=== PATIENT | female | born 1985 | race Caucasian/White ===

== ENCOUNTER 2020-04-29 07:56 | Day surgery (SDC) | payer MEDICAID, OTHER ==
[2020-04-29] MEDS ORDERED: Sodium Chloride 0.9% 1,000 ML IV STA (08:29)
[2020-04-29] MEDS ORDERED: Sodium Chloride 0.9% 10 ML Syringe FLUSH PRN (08:29)
[2020-04-29] MEDS ORDERED: Ondansetron 4 MG/2 ML SDV IVPUSH ONE (08:30)
[2020-04-29] MEDS ORDERED: fentaNYL 100 MCG/2 ML SDV IVPUSH ONE ×2 (08:30→10:18)
--- NOTE | 2020-04-29 08:33 | EDM.PDOC ---
ED HPI GENERAL MEDICAL PROBLEM - General Chief Complaint: Abdominal Pain Stated Complaint: UPPER/MIDDLE ABD PAIN Time Seen by Provider: 04/29/20 08:25 Source of Information: Reports: Patient, RN Notes Reviewed History Limitations: Reports: No Limitations - History of Present Illness INITIAL COMMENTS - FREE TEXT/NARRATIVE: 34-year-old female presents emergency department a complaint of abdominal pain, she states the pain started last night it is intense initially was in the right lower quadrant but now migrated up to epigastric region she had a bowel movement yesterday she has passed gas no history of abdominal surgeries no fevers no shortness of breath or chest pain Right Lower Abdomen Pain Score (Numeric/FACES): 9 - Related Data Allergies Allergy/AdvReac Type Severity Reaction Status Date / Time Penicillins Allergy Itching Verified 04/29/20 08:20 Home Meds: Home Meds NK [No Known Home Meds] 04/29/20 [History] Past Medical History MANAGER APPOINTMENT History: Reports: Social & Family History - Tobacco Use Smoking Status *Q: Light Tobacco Smoker Years of Tobacco use: 2 Packs/Tins Daily: 0.2 - Caffeine Use Caffeine Use: Reports: Coffee - Recreational Drug Use Recreational Drug Use: No ED ROS GENERAL - Review of Systems Review Of Systems: See Below Constitutional: Reports: No Symptoms HEENT: Reports: No Symptoms Respiratory: Reports: No Symptoms Cardiovascular: Reports: No Symptoms GI/Abdominal: Reports: Abdominal Pain, Flatus, Nausea, Vomiting : Reports: No Symptoms ED EXAM, GI/ABD - Physical Exam Exam: See Below Exam Limited By: No Limitations General Appearance: Alert, Mild Distress Respiratory/Chest: No Respiratory Distress GI/Abdominal Exam: Soft, No Distention, No Abnormal Bruit, Tender (Right lower quadrant), Abnormal Bowel Sounds (Decreased) Back Exam: No: CVA Tenderness (R), CVA Tenderness (L) Course - Vital Signs Last Recorded V/S: Last Vital Signs Temp 97.8 F 04/29/20 08:18 Pulse 63 04/29/20 08:46 Resp 16 04/29/20 08:46 BP 118/73 04/29/20 08:46 Pulse Ox 99 04/29/20 08:46 - Orders/Labs/Meds Orders: Active Orders 24 hr Category Date Time Status Peripheral IV Care [RC] . DIRECTED Care 09/17/20 08:29 Active Abdomen Pelvis w Cont [CT] Urgent Exams 04/29/20 08:29 Taken CORONAVIRUS COVID-19, [facility] Stat Lab 04/29/20 09:35 Ordered Sodium Chloride 0.9% [Normal Saline] 1,000 ml Med 04/29/20 08:29 Active IV .BOLUS Sodium Chloride 0.9% [Normal Saline] 70 ml Med 04/29/20 09:00 Active IV ASDIRECTED Sodium Chloride 0.9% [Saline Flush] Med 04/29/20 08:29 Active 10 ml FLUSH ASDIRECTED PRN Peripheral IV Insertion Adult [OM.PC] Urgent Oth 04/29/20 08:29 Ordered Medication Orders Sodium Chloride (Normal Saline) 1,000 mls @ 500 mls/hr IV .BOLUS STA Stop: 04/29/20 10:28 Last Admin: 04/29/20 08:54 Dose: 500 mls/hr Documented by: CHEN Sodium Chloride (Normal Saline) 70 mls @ 3 mls/sec IV ASDIRECTED DEVIN Last Admin: 04/29/20 09:09 Dose: 3 mls/sec Documented by: [email or web address] Sodium Chloride (Saline Flush) 10 ml FLUSH ASDIRECTED PRN PRN Reason: Keep Vein Open Last Admin: 04/29/20 08:54 Dose: 10 ml Documented by: CHEN Labs: Laboratory Tests 04/29/20 04/29/20 04/29/20 Range/Units 08:39 08:39 08:39 WBC 11.0 (4.5-11.0) K/uL RBC 4.92 (3.30-5.50) M/uL Hgb 13.8 D (12.0-15.0) g/dL Hct 41.7 (36.0-48.0) % MCV 85 (80-98) fL MCH 28 (27-31) pg MCHC 33 (32-36) % Plt Count 177 (150-400) K/uL Neut % (Auto) 86 H (36-66) % Lymph % (Auto) 6 L (24-44) % [place] % (Auto) 5 (2-6) % Eos % (Auto) 2 (2-4) % Baso % (Auto) 0 (0-1) % Sodium 139 L (140-148) mmol/L Potassium 3.9 (3.6-5.2) mmol/L Chloride 104 (100-108) mmol/L Carbon Dioxide 23 (21-32) mmol/L Anion Gap 15.9 H (5.0-14.0) mmol/L BUN 16 (7-18) mg/dL Creatinine 0.9 (0.6-1.0) mg/dL Est Cr Clr Drug Dosing 67.72 mL/min Estimated GFR (MDRD) > 60 (>60) Glucose 94 (74-106) mg/dL Lactic Acid 0.9 (0.4-2.0) mmol/L Calcium 9.0 (8.5-10.1) mg/dL Total Bilirubin 0.6 (0.2-1.0) mg/dL AST 13 L (15-37) U/L ALT 13 (12-78) U/L Alkaline Phosphatase 80 (46-116) U/L Total Protein 7.3 (6.4-8.2) g/dL Albumin 3.8 (3.4-5.0) g/dL Globulin 3.5 (2.3-3.5) g/dL Albumin/Globulin Ratio 1.1 L (1.2-2.2) Lipase 52 L (73-393) U/L Urine Color (YELLOW) Urine Appearance (CLEAR) Urine pH (5.0-8.0) Ur Specific [place] (1.008-1.030) Urine Protein (NEGATIVE) mg/dL Urine Glucose (UA) (NEGATIVE) mg/dL Urine Ketones (NEGATIVE) mg/dL Urine Occult Blood (NEGATIVE) Urine Nitrite (NEGATIVE) Urine Bilirubin (NEGATIVE) Urine Urobilinogen (0.2-1.0) EU/dL Ur Leukocyte Esterase (NEGATIVE) Urine RBC (0-5) Urine WBC (0-5) Ur Epithelial Cells Amorphous Sediment Urine Bacteria Urine Mucus 04/29/20 Range/Units 08:55 WBC (4.5-11.0) K/uL RBC (3.30-5.50) M/uL Hgb (12.0-15.0) g/dL Hct (36.0-48.0) % MCV (80-98) fL MCH (27-31) pg MCHC (32-36) % Plt Count (150-400) K/uL Neut % (Auto) (36-66) % Lymph % (Auto) (24-44) % [place] % (Auto) (2-6) % Eos % (Auto) (2-4) % Baso % (Auto) (0-1) % Sodium (140-148) mmol/L Potassium (3.6-5.2) mmol/L Chloride (100-108) mmol/L Carbon Dioxide (21-32) mmol/L Anion Gap (5.0-14.0) mmol/L BUN (7-18) mg/dL Creatinine (0.6-1.0) mg/dL Est Cr Clr Drug Dosing mL/min Estimated GFR (MDRD) (>60) Glucose (74-106) mg/dL Lactic Acid (0.4-2.0) mmol/L Calcium (8.5-10.1) mg/dL Total Bilirubin (0.2-1.0) mg/dL AST (15-37) U/L ALT (12-78) U/L Alkaline Phosphatase (46-116) U/L Total Protein (6.4-8.2) g/dL Albumin (3.4-5.0) g/dL Globulin (2.3-3.5) g/dL Albumin/Globulin Ratio (1.2-2.2) Lipase (73-393) U/L Urine Color Yellow (YELLOW) Urine Appearance Clear (CLEAR) Urine pH 6.0 (5.0-8.0) Ur Specific [place] >= 1.030 (1.008-1.030) Urine Protein 30 H (NEGATIVE) mg/dL Urine Glucose (UA) Negative (NEGATIVE) mg/dL Urine Ketones 15 H (NEGATIVE) mg/dL Urine Occult Blood Negative (NEGATIVE) Urine Nitrite Negative (NEGATIVE) Urine Bilirubin Small H (NEGATIVE) Urine Urobilinogen 0.2 (0.2-1.0) EU/dL Ur Leukocyte Esterase Negative (NEGATIVE) Urine RBC 0-5 (0-5) Urine WBC 0-5 (0-5) Ur Epithelial Cells Few Amorphous Sediment Few Urine Bacteria Rare Urine Mucus Moderate Meds: Medications Generic Name Dose Route Start Last Admin Trade Name Freq PRN Reason Stop Dose Admin Sodium Chloride 1,000 mls @ 500 mls/hr 04/29/20 08:29 04/29/20 08:54 Normal Saline IV 04/29/20 10:28 500 mls/hr .BOLUS STA Administration Sodium Chloride 70 mls @ 3 mls/sec 04/29/20 09:00 04/29/20 09:09 Normal Saline IV 3 mls/sec ASDIRECTED DEVIN Administration Sodium Chloride 10 ml 04/29/20 08:29 04/29/20 08:54 Saline Flush FLUSH 10 ml ASDIRECTED PRN Administration Keep Vein Open Discontinued Medications Generic Name Dose Route Start Last Admin Trade Name Freq PRN Reason Stop Dose Admin Fentanyl 50 mcg 04/29/20 08:30 04/29/20 08:50 Sublimaze IVPUSH 04/29/20 08:31 50 mcg ONETIME ONE Administration Iopamidol 78 ml 04/29/20 08:54 04/29/20 09:09 Isovue-300 (61%) IV 04/29/20 08:55 78 ml ONETIME ONE Administration Ondansetron HCl 4 mg 04/29/20 08:30 04/29/20 08:50 Zofran IVPUSH 04/29/20 08:31 4 mg ONETIME ONE Administration Departure - Departure Time of Disposition: 09:42 Disposition: Home, Self-Care 01 Condition: Fair Clinical Impression: Appendicitis Qualifiers: Appendicitis type: acute appendicitis Acute appendicitis type: with localized peritonitis Appendicitis gangrene presence: without gangrene Appendicitis perforation presence: without perforation Appendicitis abscess presence: without abscess Qualified Code(s): K35.30 - Acute appendicitis with localized peritonitis, without perforation or gangrene - Discharge Information Instructions: Appendicitis, Adult Referrals: PCP,None [Primary Care Provider] - Forms: ED Department Discharge Sepsis Event Note (ED) - Evaluation Sepsis Screening Result: No Definite Risk - Focused Exam Vital Signs: Vital Signs Temp Pulse Resp BP Pulse Ox 04/29/20 08:46 63 16 118/73 99 04/29/20 08:18 97.8 F 93 18 129/70 97 - My Orders Last 24 Hours: My Active Orders 04/29/20 08:29 Peripheral IV Care [RC] . DIRECTED Abdomen Pelvis w Cont [CT] Urgent Sodium Chloride 0.9% [Normal Saline] 1,000 ml IV .BOLUS Sodium Chloride 0.9% [Saline Flush] 10 ml FLUSH ASDIRECTED PRN Peripheral IV Insertion Adult [OM.PC] Urgent 04/29/20 09:00 Sodium Chloride 0.9% [Normal Saline] 70 ml IV ASDIRECTED 04/29/20 09:35 CORONAVIRUS COVID-19, [facility] Stat - Assessment/Plan Last 24 Hours: My Active Orders 04/29/20 08:29 Peripheral IV Care [RC] . DIRECTED Abdomen Pelvis w Cont [CT] Urgent Sodium Chloride 0.9% [Normal Saline] 1,000 ml IV .BOLUS Sodium Chloride 0.9% [Saline Flush] 10 ml FLUSH ASDIRECTED PRN Peripheral IV Insertion Adult [OM.PC] Urgent 04/29/20 09:00 Sodium Chloride 0.9% [Normal Saline] 70 ml IV ASDIRECTED 04/29/20 09:35 CORONAVIRUS COVID-19, [facility] Stat Plan: Assessment Acuity = acute Site and laterality = acute appendicitis Etiology = unknown Manifestations = abdominal pain nausea vomiting Location of injury = Home Lab values = CBC CMP unremarkable urinalysis does demonstrate, 15 ketones as well as 30 protein small amount of bilirubin Plan Call discussed case Dr. Garcia at [phone] kindly agreed to come and evaluate the patient in the emergency department for possible surgical intervention This note was dictated using [email or web address] voice recognition software please call with any questions on syntax or grammar.
[2020-04-29] MEDS ORDERED: Iopamidol 612 MG/ML 500 ML Multipack Bottle IV ONE (08:54)
--- NOTE | 2020-04-29 09:56 | CT ---
Abdomen Pelvis w Cont CLINICAL HISTORY: Right lower quadrant pain COMPARISON: None. TECHNIQUE: Transverse scans were obtained from the base of the lungs to the pubic symphysis following oral contrast and IV infusion of contrast.Auto dosage reduction and iterative reconstructiontechniques employed. FINDINGS: There is a is a distended the appendix in the right lower quadrant measuring 16 mm in diameter. This extends downward into the low right pelvis posteriorly. There is an adjacent fluid filled density lateral and posterior to the appendix which is likely the right ovary with multiple small cysts. There are a few isolated the sigmoid diverticula. Small intestinal configuration is nonacute The lung bases are clear. The liver shows no mass or biliary dilatation. The gallbladder has a normal contour. The spleen has a normal size and shape. The pancreas shows no mass or inflammatory change. The adrenal glands appear normal bilaterally . The kidneys show no mass stones or hydronephrosis. The ureters have a normal course and caliber. The bladder is nondistended. The aorta has a normal contour. There is no suspicious retroperitoneal adenopathy. IMPRESSION: Fluid-filled distended appendix. This is suspect for acute appendicitis. There are not significant inflammatory changes in the surrounding fat or free fluid collections. Mucocele the appendix is not excluded. Clinical correlation is necessary. ER was notified at the time of this dictation at 9:30 AM
[2020-04-29] MEDS ORDERED: fentaNYL 100 MCG/2 ML SDV IVPUSH PRN (10:40)
[2020-04-29] MEDS ORDERED: Succinylcholine 200 MG/10 ML MDV ONE (10:42)
[2020-04-29] MEDS ORDERED: Rocuronium 50 MG/5 ML Vial ONE (10:42)
[2020-04-29] MEDS ORDERED: Propofol 200 MG/20 ML SDV ONE (10:42)
[2020-04-29] MEDS ORDERED: Dexamethasone 4 MG/ML SDV ONE (10:42)
[2020-04-29] MEDS ORDERED: Glycopyrrolate 0.2 MG/ML 5 ML MDV ONE (10:42)
[2020-04-29] MEDS ORDERED: fentaNYL 250 MCG/5 ML SDV ONE (10:42)
[2020-04-29] MEDS ORDERED: Neostigmine Methylsulfate 1 MG/ML 5 ML Syringe ONE (10:42)
[2020-04-29] MEDS ORDERED: Ondansetron 4 MG/2 ML SDV ONE (10:42)
[2020-04-29] MEDS ORDERED: Ertapenem 1 GM in Sodium Chloride 0.9% 100 ML IV SCH (10:45)
[2020-04-29] MEDS: Meropenem 1 GM in Sodium Chloride 0.9% 100 ML IV SCH ×2 (10:53→18:41)
[2020-04-29] MEDS: Bupivacaine 0.5%/EPINEPHrine 1:200,000 50 ML MDV ONE ×2 (10:56→11:47)
[2020-04-29] MEDS ORDERED: Lactated Ringers 1,000 ML ONE (11:13)
[2020-04-29] MEDS ORDERED: Ropivacaine 28 ML, dexAMETHasone 8 MG, EPINEPHrine 0.4 MG, Sodium Chloride 0.9% 49.6 ML NERVRT SCH ×4 (11:30)
[2020-04-29] MEDS ORDERED: diphenhydrAMINE 50 MG/ML SDV IVPUSH PRN (11:47)
[2020-04-29] MEDS ORDERED: Bisacodyl 5 MG Tab PO PRN (11:47)
[2020-04-29] MEDS ORDERED: hydrOXYzine HCL 100 MG/2 ML SDV IM PRN (11:47)
[2020-04-29] MEDS ORDERED: Benzocaine/Cetylpyridinium/Menthol Lozenge MUCMEM PRN (11:47)
[2020-04-29] MEDS ORDERED: Docusate Sodium 100 MG Cap PO PRN (11:47)
[2020-04-29] MEDS ORDERED: Acetaminophen/HYDROcodone 325-10 MG Tab PO PRN (11:47)
[2020-04-29] MEDS ORDERED: Sugammadex Sodium 200 MG/2 ML VIAL ONE (11:53)
[2020-04-29] MEDS ORDERED: Meperidine PF 25 MG/ML Syringe IV ONE (12:30)
--- NOTE | 2020-04-29 14:32 | OR ---
DATE OF PROCEDURE: 04/29/2020 SURGEON: Darren Garcia MD PROCEDURE: Laparoscopic appendectomy. FINDINGS: Nonruptured acute appendicitis. RISKS: Risks, benefits, alternatives, and limitations including, but not limited to infection, bleeding, and perforation of abdominal structures, seroma, hematoma, abscess formation, other risks not listed here were explained to the patient, who wished to proceed. PROCEDURE IN DETAIL: The patient was placed in supine position. A supraumbilical curvilinear incision was made. A Veress needle was used to enter the abdomen without abnormality and a drop test was performed without abnormality. The Optiview trocar was then entered after insufflation. Two 5 mm ports were entered under direct visualization. The appendix was readily identified. This was consistent with nonruptured, nonsuppurative appendicitis. This was transected using 2 gomez load staplers. Pressure was dropped to 7. No abnormal bleeding was noted. The appendix was delivered through the umbilical port with a bag. The bag did not rupture. The abdomen was thoroughly irrigated with approximately 1 L of irrigation and removed. The air was removed. The wounds were closed with 3-0 Vicryl and 4-0 Vicryl in interrupted running fashion. Dermabond was applied. The patient tolerated the procedure well. Darren Garcia MD /[id number]
--- NOTE | 2020-04-29 14:32 | OR ---
DATE OF PROCEDURE: 04/29/2020 SURGEON: Darren Garcia MD PROCEDURE: Transversus abdominis plane block, bilaterally. COMPLICATIONS: None. DIRECTOR OF CONSTRUCTION: None. RISKS: Risks, benefits, alternatives, and limitations including, but not limited to infection, bleeding, injury to abdominal structures were explained to the patient and wished to proceed. PROCEDURE IN DETAIL: The patient was placed in supine position. The right transversus plane was readily identified. This was performed using a 13 megahertz ultrasound probe. 80% of solution was injected under direct visualization. The other side was then performed in a same manner, same fashion, same technique in the same sequence, using the same equipment. The patient tolerated the procedure well. Darren Garcia MD /[id number]
[2020-04-30] MEDS: Meropenem 1 GM in Sodium Chloride 0.9% 100 ML IV SCH ×2 (02:42→09:30)
[2020-04-30] MEDS: Acetaminophen/HYDROcodone 325-10 MG Tab PO PRN ×2 (02:44→08:38)
== END 2020-04-30 10:51 | disposition home or self-care (01) ==
LOC: JP.ED 07:56 → JP.SDS 10:00 → JP.ICU 11:47 → UNDOADMOB 11:47 → JP.SDS 04-30 10:51 → UNDODISOB 04-30 10:51
PROVIDERS: ATTEND Surgery
DX: K35.30 Acute appendicitis with localized peritonitis, without perforation or gangrene (principal); F17.210 Nicotine dependence, cigarettes, uncomplicated; Z01.812 Encounter for preprocedural laboratory examination; Z20.828 Contact with and (suspected) exposure to other viral communicable diseases; Z88.0 Allergy status to penicillin
CPT/HCPCS: 36415; 44970; 74177; 80048; 80053; 81001; 83605; 83690; 85025; 85027; 87635; 88304; 96361; 96374; 96375; 96376; 99285; A9270; J0171; J0330; J1100; J1790; J2175; J2185; J2405; J2704; J2710; J2795; J3010; J3410; J3490; J7030; J7050; J7120; Q9967; U0002